=== PATIENT | female | born 1990 | race African-American/Black ===

== ENCOUNTER 2020-07-23 14:38 | Emergency (ER) | payer OTHER ==
--- OUTSIDE RECORDS SUMMARY | 2020-07-23 14:42 | XMS REPORT | Summary of Care ---
:1990 Author Organization [facility] Address [address] [place] [id number] Care Team Providers Name Role Phone Adeola Crum Primary Care Provider Reason for Visit Reason Comments Assessment Encounter Details Date Type Department Care Team Description 06/17/2020 Telephone [facility] EmmanuelAye MD Assessment Healthcare- [address] [place] [address] [address] [place] [address] [place] [address] [phone] Allergies No Known Allergiesdocumented as of this encounter (statuses as of 06/17/2020) Medications Medication Sig Dispensed Refills Start Date End Date Status vitamin w/FA Take 1 tablet by 100 tablet 3 01/23/2020 Active tabletIndications: mouth daily. Single liveborn, born in hospital, delivered by section, in third trimester with history of , 40 weeks gestation of , Obesity (BMI 30-39.9) docusate calcium 240 Take 1 capsule by 60 capsule 1 01/23/2020 Active mg capsuleIndications: mouth once daily Single liveborn, born as needed for in hospital, delivered Constipation. by section, in third trimester with history of , 40 weeks gestation of , Obesity (BMI 30-39.9) ferrous sulfate 325 mg Take 1 tablet by 60 tablet 2 01/23/2020 Active (65 mg iron) mouth 2 (two) tabletIndications: times daily. Single liveborn, born in hospital, delivered by section, in third trimester with history of , 40 weeks gestation of , Obesity (BMI 30-39.9) ibuprofen 600 mg Take 1 tablet by 30 tablet 1 01/23/2020 Active tabletIndications: mouth every 6 Single liveborn, born (six) hours as in hospital, delivered needed (Pain). by section, Take with food or in third milk. trimester with history of , 40 weeks gestation of , Obesity (BMI 30-39.9) SPRINTEC 0.25-35 TAKE 1 TABLET BY 84 tablet 1 02/20/2020 Active mg-mcg per MOUTH EVERY DAY tabletIndications: Encounter for BCP ( control pills) initial prescription nystatin 100,000 Apply to area(s) 15 g 1 03/23/2020 Active unit/gram 2 (two) times ointmentIndications: daily. Cracked nipple, condition or complication, Candidiasis of breast documented as of this encounter (statuses as of 06/17/2020) Active Problems Problem Noted Date Routine follow-up 02/17/2020 Encounter for BCP ( control pills) initial prescr iption 02/17/2020 Obesity (BMI 30-39.9) 12/24/2019 documented as of this encounter (statuses as of 06/17/2020) Resolved Problems Problem Noted Date Resolved Date in third trimester with history of 201802/17/2020 40 weeks gestation of 06/25/2019 02/17/20 20 Nausea and vomiting during prior to 22 weeks 06/2510/15/2019 gestation Pain pelvic 08/29/2018 06/25/2019 documented as of this encounter (statuses as of 06/17/2020) Immunizations Name Administration Dates Next Due Influenza Virus Vaccine Quad .5 mL IM 6+ MO 05/23/2019 TDAP (ADACEL) VACCINE 11/05/2019 11/04/2029 documented as of this encounter Social History Tobacco Use Types Packs/Day Years Used Date Never Smoker Smokeless Tobacco: Never Used Alcohol Use Drinks/Week oz/Week Comments No Sex Assigned at Date Recorded Not on file documented as of this encounter Last Filed Vital Signs Not on filedocumented in this encounter Miscellaneous Notes Telephone Encounter - Adriane Carroll MA - 06/17/2020 5:01 PM CSTS/w patient and identified her name and , patient stated she stopped breast feeding in April and was confirming if she needed to change her b/c. Informed patient that if she likes her b/c and is content with it there is no need to change it. Also informed patient that she should not express her breast or nipple or she will cause her more milk production, and if she feels she is leaking breast milk she can use cabbage leaves to help her dry out. Patient verbalized understanding. documented in this encounter Plan of Treatment Date Type Specialty Care Team Description 08/19/2020 Office Visit Obstetrics & Gynecology Rocky Emmanuel MD [address] [place] [address] [place] [address] 15 [phone] Health Maintenance Due Date Last Done Comments Depression Screening 2003 INFLUENZA VACCINE (#1) 2020 05/23/2019 PAP SMEAR 01/10/2022 01/10/2019 DTaP,Tdap,and Td Vaccines (2 - Td) 11/04/2029 11/05/2019 PNEUMOCOCCAL 0-64 YEARS COMBINED Aged Out No longer eligible based on SERIES patient's age to complete this topic documented as of this encounter Results Not on filedocumented in this encounter Insurance Payer Benefit Plan / Group Subscriber ID Effective Dates Phone Address Type AETNA AETNA CHOICE POS II [id number] 2018-Present POS documented as of this encounter
--- OUTSIDE RECORDS SUMMARY | 2020-07-23 14:42 | XMS REPORT | Continuity of Care Document ---
:1990 Author Organization [facility] t Address [address] [place] [address] Care Team Providers Name Role Phone Jose Emmanuel MD Attending Clinician Iris ART Attending Clinician Problems This patient has no known problems. Allergies, Adverse Reactions, Alerts This patient has no known allergies or adverse reactions. Medications This patient has no known medications. Procedures This patient has no known procedures. Encounters Start End Encounter Admission Attending Care Care Encounter Source Date/Time Date/Time Type Type Clinicians Facility Department ID 2020-06-17 2020-06-17 Telephone Aye Emmanuel [facility] [id number] 00:00:00 00:00:00 Jose Vasquez [id number] Caitlyn [id number] Professio [phone] [address] 2020-03-23 2020-03-23 Office MAYELA Simmons [id number] 15:16:07 15:46:07 Visit Maty Vasquez [id number] Caitlyn [id number] Professio [phone] [facility] [address] [facility] Results This patient has no known results.
--- NOTE | 2020-07-23 16:11 | RAD REPORT ---
EXAM DESCRIPTION: RAD - Chest Pa And Lat (2 Views) - 07/23/2020 3:50 pm CLINICAL HISTORY: DYSPNEA COMPARISON: None TECHNIQUE: Frontal and lateral views of the chest were obtained. FINDINGS: The lungs are clear. Heart size is normal and central vasculature is within normal limit s. No pleural effusion or pneumothorax seen. No acute bony finding noted. No aortic abnormality. IMPRESSION: No acute cardiopulmonary process.
--- NOTE | 2020-07-23 16:31 | EDPHYS ---
Physician Documentation [facility] Name: Nikole Wiseman Age: 30 yrs Sex: Female : 1990 Arrival Date: 07/23/2020 Time: 14:40 Bed 28 Private MD: ED Physician Eitan Madden HPI: 07/23 16:46 This 30 yrs old Black Female presents to ER via Ambulatory with complaints of Chest kb Tightness, Shortness Of Breath. 16:46 The patient has shortness of breath at rest. Onset: The symptoms/episode began/occurred kb 1 week(s) ago. Duration: The symptoms are intermittent. The patient's shortness of breath has no apparent modifying factors. Associated signs and symptoms: The patient has no apparent associated signs or symptoms. Severity of symptoms: At their worst the symptoms were mild in the emergency department the symptoms are unchanged. The patient has not experienced similar symptoms in the past. The patient has not recently seen a physician. Pt reports she has had episodes over the last week where she doesn't feel like she is taking a full breath. Reports she has to consciously take a deep breath to feel like she is filling her lungs. 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 - Social history:: Smoking status: Patient denies any tobacco usage or history of. ROS: 16:40 Constitutional: Negative for fever, chills, and weight loss, Cardiovascular: Negative kb for chest pain, palpitations, and edema, Abdomen/GI: Negative for abdominal pain, nausea, vomiting, diarrhea, and constipation, Back: Negative for injury and pain, MS/Extremity: Negative for injury and deformity, Skin: Negative for injury, rash, and discoloration, Neuro: Negative for headache, weakness, numbness, tingling, and seizure. 16:40 Respiratory: Positive for shortness of breath. Exam: 16:46 Constitutional: This is a well developed, well nourished patient who is awake, alert, kb and in no acute distress. Head/Face: Normocephalic, atraumatic. Chest/axilla: Normal chest wall appearance and motion. Nontender with no deformity. No lesions are appreciated. Cardiovascular: Regular rate and rhythm with a normal S1 and S2. No gallops, murmurs, or rubs. Normal PMI, no JVD. No pulse deficits. Respiratory: Lungs have equal breath sounds bilaterally, clear to auscultation and percussion. No rales, rhonchi or wheezes noted. No increased work of breathing, no retractions or nasal flaring. Abdomen/GI: Soft, non-tender, with normal bowel sounds. No distension or tympany. No guarding or rebound. No evidence of tenderness throughout. Skin: Warm, dry with normal turgor. Normal color with no rashes, no lesions, and no evidence of cellulitis. MS/ Extremity: Pulses equal, no cyanosis. Neurovascular intact. Full, normal range of motion. Neuro: Awake and alert, GCS 15, oriented to person, place, time, and situation. Cranial nerves II-XII grossly intact. Motor strength 5/5 in all extremities. Sensory grossly intact. Cerebellar exam normal. Normal gait. Vital Signs: 14:49 BP 110 / 75; Pulse 67; Resp 18 S; Temp 97.1(TE); Pulse Ox 100% on R/A; Weight 63.5 kg ca1 (R); Height 5 ft. 5 in. (165.10 cm) (R); Pain 0/10; 16:43 BP 112 / 78; Pulse 65; Resp 18; Temp 97.2; Pulse Ox 99% on R/A; ph 14:49 Body Mass Index 23.30 (63.50 kg, 165.10 cm) ca1 MDM: 14:55 Patient medically screened. kb 16:36 Data reviewed: vital signs, nurses notes. Data interpreted: Pulse oximetry: on room air kb is 100 %. Interpretation: normal. Counseling: I had a detailed discussion with the patient and/or guardian regarding: the historical points, exam findings, and any diagnostic results supporting the discharge/admit diagnosis, lab results, radiology results, the need for outpatient follow up, a family practitioner, to return to the emergency department if symptoms worsen or persist or if there are any questions or concerns that arise at home. 07/23 14:53 Order name: Flu; Complete Time: 16:36 kb 07/23 14:54 Order name: COVID-19 kb 07/23 14:53 Order name: EKG; Complete Time: 14:54 kb 07/23 14:53 Order name: EKG - Nurse/Tech; Complete Time: 15:05 kb 07/23 14:53 Order name: Chest Pa And Lat (2 Views) XRAY; Complete Time: 16:14 kb Administered Medications: No medications were administered Disposition: 07/24 07:00 Co-signature as Attending Physician, Eitan Madden MD I agree with the assessment and omayra plan of care. Disposition: 07/23/20 16:31 Discharged to Home. Impression: Dyspnea. - Condition is Stable. - Discharge Instructions: Shortness of Breath, [id number]. - Prescriptions for Albuterol Sulfate 90 mcg/actuation - inhale 1-2 puff by INHALATION route every 4-6 hours; 1 Inhaler. - Medication Reconciliation Form, Thank You Letter, Antibiotic Education, Prescription Opioid Use form. - Follow up: Emergency Department; When: As needed; Reason: Worsening of condition. Follow up: Private Physician; When: 2 - 3 days; Reason: Recheck today's complaints, Continuance of care, Re-evaluation by your physician. Signatures: Dispatcher [employer] EDLeonor Mar, MOTORIZED SQUAD LIEUTENANT-C LORENZO-Eitan Man MD MD cha Hall, Patricia, RN RN Rain Rader RN RN ca1 Corrections: (The following items were deleted from the chart) 07/23 16:43 16:31 07/23/2020 16:31 Discharged to Home. Impression: Dyspnea. Condition is Stable. ph Forms are Medication Reconciliation Form, Thank You Letter, Antibiotic Education, Prescription Opioid Use. Follow up: Emergency Department; When: As needed; Reason: Worsening of condition. Follow up: Private Physician; When: 2 - 3 days; Reason: Recheck today's complaints, Continuance of care, Re-evaluation by your physician. kb
--- NOTE | 2020-07-23 16:31 | ER ---
Nurse's Notes [facility] Name: Nikole Wiseman Age: 30 yrs Sex: Female : 1990 Arrival Date: 07/23/2020 Time: 14:40 Bed 28 Private MD: Diagnosis: Dyspnea Presentation: 07/23 14:49 Chief complaint: Patient states: I've been feeling chest tightness and has to put in ca1 effort to breathe deeply for over a week now. Denies cough, congestion, fever. Coronavirus screen: Client denies travel out of the [place] in the last 14 days. At this time, the client does not indicate any symptoms associated with coronavirus-19. The client reports previous COVID testing was negative. Date of collection: January 21, 2020. Ebola Screen: Patient negative for fever greater than or equal to 101.5 degrees Fahrenheit, and additional compatible Ebola Virus Disease symptoms Patient denies exposure to infectious person. Patient denies travel to an Ebola-affected area in the 21 days before illness onset. No symptoms or risks identified at this time. Initial Sepsis Screen: Does the patient meet any 2 criteria? No. Patient's initial sepsis screen is negative. Does the patient have a suspected source of infection? No. Patient's initial sepsis screen is negative. Risk Assessment: Do you want to hurt yourself or someone else? Patient reports no desire to harm self or others. Onset of symptoms was July 23, 2020. 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 - Social history:: Smoking status: Patient denies any tobacco usage or history of. Screenin:58 Abuse screen: Denies threats or abuse. Denies injuries from another. Nutritional ph screening: No deficits noted. Tuberculosis screening: No symptoms or risk factors identified. Fall Risk None identified. Assessment: 15:30 General: Appears in no apparent distress. comfortable, slender, well groomed, Behavior ph is calm, cooperative, appropriate for age, Denies fever. Pain: Complains of pain in chest Pain does not radiate. Quality of pain is described as "tight" Pain began approx 1 week ago. Neuro: Level of Consciousness is awake, alert, obeys commands, Oriented to person, place, time, situation. Cardiovascular: Reports chest pain, shortness of breath, Capillary refill < 3 seconds in bilateral fingers Patient's skin is warm and dry. Respiratory: Reports shortness of breath Airway is patent Respiratory effort is even, unlabored, Denies cough. GI: No signs and/or symptoms were reported involving the gastrointestinal system. Derm: Skin is intact, is healthy with good turgor, Skin is pink, warm \\T\\ dry. Vital Signs: 14:49 BP 110 / 75; Pulse 67; Resp 18 S; Temp 97.1(TE); Pulse Ox 100% on R/A; Weight 63.5 kg ca1 (R); Height 5 ft. 5 in. (165.10 cm) (R); Pain 0/10; 16:43 BP 112 / 78; Pulse 65; Resp 18; Temp 97.2; Pulse Ox 99% on R/A; ph 14:49 Body Mass Index 23.30 (63.50 kg, 165.10 cm) ca1 ED Course: 14:40 Patient arrived in ED. ag5 14:51 Leonor Connolly FNP-C [facility]. kb 14:51 Eitan Madden MD is Attending Physician. kb 14:52 Triage completed. ca1 14:53 Clemencia House, RN is Primary Nurse. ph 14:53 Arm band placed on right wrist. ca1 15:47 Chest Pa And Lat (2 Views) XRAY In Process Unspecified. EDMS 15:58 Patient has correct armband on for positive identification. Bed in low position. Call ph light in reach. Pulse ox on. NIBP on. Door closed. Noise minimized. 15:58 No provider procedures requiring assistance completed. Patient did not have IV access ph during this emergency room visit. Patient maintains SpO2 saturation greater than 95% on room air. Administered Medications: No medications were administered Outcome: 16:31 Discharge ordered by . kb 16:43 Discharged to home ambulatory. ph 16:43 Condition: good 16:43 Discharge instructions given to patient, Instructed on discharge instructions, follow up and referral plans. medication usage, Demonstrated understanding of instructions, follow-up care, medications, Prescriptions given X 1. 16:43 Patient left the ED. Addendum: 07/28/2020 08:41 Addendum: COVID-19 Result: Negative result given to RN to notify pt. Contacted by: rommel Morris RN. Notified pt of negative COVID 19 swab results. Pt advised that even with a negative test result they should remain in isolation until symptom free for 3 days without medication. Pt also advised to return to the ED for worsening symptoms. Signatures: Dispatcher [employer] EDMS Leonor Connolly, PLANT SCIENCES PROFESSOR-C PLANT SCIENCES PROFESSOR-Ckb Alexandra Urias RN RN sv Hall, Patricia, RN RN Rain Thao RN RN ca1 Gaskin, Ajare ag5
[2020-07-23 16:52] VITALS: BP 112/78; TEMP 97.2; O2SAT 99
--- NOTE | 2020-07-25 14:07 | EKG ---
Test Date: 2020-07-23 Test Time: 15:07:56 Foamite Mixer: NEISHA MEASUREMENT RESULTS: Intervals: Rate: 62 SC: 162 QRSD: 86 QT: 408 QTc: 414 [place]: P: 78 SC: 162 QRS: 90 T: 69 INTERPRETIVE STATEMENTS: Normal sinus rhythm Rightward axis Borderline ECG No previous ECG available for comparison Electronically Signed On 07-25-20 14:04:55 RESEARCH LABORATORY SPECIALIST by Flakito Pascual
== END 2020-07-23 16:43 | disposition home or self-care (01) ==
LOC: ER 14:38
DX: R06.00 Dyspnea, unspecified (principal); Z20.828 Contact with and (suspected) exposure to other viral communicable diseases
CPT/HCPCS: 93005 ×2; 87804 ×2; 71046; 99284; U0002

== ENCOUNTER → 2023-07-31 | Emergency (ER) | payer OTHER ==
[~2023-07-31] MED LIST: CEFTRIAXONE 1000 MG/VIAL ONE; NA CHLORIDE 0.9% 1,000 ML ONE; ONDANSETRON 4 MG/2 ML VIAL ONE
[2023-07-31 14:16] LABS: SARS-COV-2 RT PCR NEGATIVE (NEGATIVE)
--- NOTE | 2023-07-31 16:14 | EDPHYS ---
Physician Documentation [facility] Name: Nikole Wiseman Age: 33 yrs Sex: Female : 1990 Arrival Date: 07/31/2023 Time: 10:54 Bed 10 Private MD: ED Physician Jeffrey Ross HPI: 07/31 13:12 This 33 yrs old Black Female presents to ER via Ambulatory with complaints of Nausea, sb4 Fever, Sore Throat. 13:12 Sore throat that started 5 days ago. Was seen at urgent care yesterday, negative strep sb4 swab, but was put on amoxicillin. States that today she has been very nauseous and vomiting and has not been able to hold down her antibiotic. She feels that she is very dehydrated. She is also breast-feeding. Also endorses fever and chills. 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 - Social history:: Smoking status: Patient denies any tobacco usage or history of. ROS: 13:12 Cardiovascular: Negative for chest pain, palpitations, and edema, sb4 13:12 Constitutional: Positive for chills, fever, 13:12 ENT: Positive for sore throat, 13:12 Abdomen/GI: Positive for nausea and vomiting, 13:12 All other systems are negative, Exam: 13:12 Constitutional: This is a well developed, well nourished patient who is awake, alert, sb4 and in no acute distress. Head/Face: Normocephalic, atraumatic. Eyes: Extra-ocular motions intact. Periorbital areas with no swelling, redness, or edema. Cardiovascular: Regular rate and rhythm with a normal S1 and S2. Respiratory: Lungs have equal breath sounds bilaterally, clear to auscultation and percussion. No rales, rhonchi or wheezes noted. No increased work of breathing, no retractions or nasal flaring. Abdomen/GI: Soft, non-tender, no distension. Skin: Warm, dry with normal turgor. Normal color with no rashes, no lesions, and no evidence of cellulitis. MS/ Extremity: Pulses equal, no cyanosis. Neurovascular intact. Full, normal range of motion. Neuro: Awake and alert, GCS 15, oriented to person, place, time, and situation. Motor strength 5/5 in all extremities. Sensory grossly intact. 13:12 ENT: Posterior pharynx: erythema, exudate, that is moderate, Vital Signs: 11:45 BP 116 / 72; Pulse 120; Resp 16; Temp 98.6; Pulse Ox 100% ; iw 15:11 BP 119 / 69; Pulse 96; Resp 16; Pulse Ox 98% on R/A; iw 16:05 BP 119 / 69; Pulse 89; Resp 18; Pulse Ox 98% on R/A; tl4 16:40 BP 111 / 66; Pulse 95; Resp 16; Pulse Ox 99% on R/A; tl4 17:00 BP 112 / 62; Pulse 101; Resp 18; Pulse Ox 100% on R/A; tl4 17:26 BP 117 / 66; Pulse 92; Resp 18; Pulse Ox 100% on R/A; tl4 MDM: 12:54 Patient medically screened. sb4 13:12 Differential diagnosis: tonsillitis, pharyngitis, covid, flu. sb4 16:13 Data reviewed: vital signs, nurses notes, lab test result(s), and as a result, I will sb4 discharge patient. Counseling: I had a detailed discussion with the patient and/or guardian regarding the historical points, exam findings, and any diagnostic results supporting the discharge/admit diagnosis, lab results, to return to the emergency department if symptoms worsen or persist or if there are any questions or concerns that arise at home. 07/31 13:11 Order name: COVID-19/FLU A+B; Complete Time: 14:23 sb4 07/31 13:11 Order name: Strep sb4 07/31 14:12 Order name: Throat Culture EDMT 07/31 13:11 Order name: IV Start; Complete Time: 13:32 sb4 Administered Medications: 13:30 Drug: NS 0.9% IV 1000 ml IV at 1 bolus Per protocol; 1000 mL bolus Route: IV; Rate: 1 iw bolus; Site: left antecubital; 17:24 Follow up: Response: No adverse reaction; IV Status: Completed infusion; IV Intake: tl4 1000ml 13:30 Drug: Ondansetron IVP 4 mg IVP once; over 2 minutes Route: IVP; Site: right antecubital;iw 17:24 Follow up: Response: Nausea is decreased tl4 15:11 Drug: Rocephin IV 1 grams IV at calculated rate once; Given slow IV push per pharmacy iw instructions Route: IV; Rate: calculated rate; Site: left antecubital; 17:23 Follow up: Response: No adverse reaction; IV Status: Completed infusion tl4 15:11 Drug: NS 0.9% IV 1000 ml IV at 1 bolus Per protocol; 1000 mL bolus Route: IV; Rate: 1 iw bolus; Site: left antecubital; 17:23 Follow up: Response: No adverse reaction; IV Status: Completed infusion; IV Intake: tl4 1000ml Disposition: 18:42 I was immediately available on-site in the Emergency Department for consultation in the ms3 care of the patient. Disposition Summary: 07/31/23 16:13 Discharge Ordered Notes: Location: Home sb4 Problem: new sb4 Symptoms: have improved sb4 Condition: Stable sb4 Diagnosis - Acute pharyngitis, unspecified sb4 - Nausea with vomiting, unspecified sb4 Followup: sb4 - With: Emergency Department - When: As needed - Reason: Trouble breathing, Worsening of condition Discharge Instructions: - Discharge Summary Sheet sb4 - Nausea and Vomiting, Adult, [id number] sb4 - Pharyngitis, [id number] sb4 Forms: - Medication Reconciliation Form sb4 - Thank You Letter sb4 - Antibiotic Education sb4 - Prescription Opioid Use sb4 - Patient Portal Instructions sb4 - Leadership Thank You Letter sb4 Prescriptions: - Zofran 4 mg Oral Tablet - take 1 tablet ORAL route every 12 hours As needed; 20 tablet; Refills: 0, sb4 Product Selection Permitted Signatures: Dispatcher [employer] Aura Bran, RN RN Jeffrey Vaughan DO DO ms3 Carolyn Troncoso PA-C PA-C sb4 LogLatrell jade tl4
--- NOTE | 2023-07-31 16:14 | ER ---
Nurse's Notes [facility] Name: Nikole Wiseman Age: 33 yrs Sex: Female : 1990 Arrival Date: 07/31/2023 Time: 10:54 Bed 10 Private MD: Diagnosis: Acute pharyngitis, unspecified;Nausea with vomiting, unspecified Presentation: 07/31 11:45 Chief complaint: Patient states: NAUSEA AND VOMITING, DX WITH THROAT INFECTION x1 WK iw AGO. Coronavirus screen: At this time, the client does not indicate any symptoms associated with coronavirus-19. Ebola Screen: No symptoms or risks identified at this time. Initial Sepsis Screen: Does the patient meet any 2 criteria? HR > 90 bpm. No. Patient's initial sepsis screen is negative. Does the patient have a suspected source of infection? No. Patient's initial sepsis screen is negative. Risk Assessment: Do you want to hurt yourself or someone else? Patient reports no desire to harm self or others. Onset of symptoms is unknown. 11:45 Method Of Arrival: Ambulatory iw 11:45 Acuity: KEITH 3 iw Triage Assessment: 17:24 General: Appears in no apparent distress. Behavior is calm, cooperative. tl4 17:25 Pain: Complains of pain in throat. GI: Reports nausea, vomiting. tl4 DIGITAL MEDIA INTERN: 11:47 LMP N/A - , Not iw Historical: - Allergies: 11:47 No Known Allergies; iw - PMHx: 11:47 High Cholesterol; iw - Immunization history:: Adult Immunizations up to date. - Social history:: Smoking status: Patient denies any tobacco usage or history of. Screenin:22 [facility] ED Fall Risk Assessment (Adult) History of falling in the last 3 months, tl4 including since admission No falls in past 3 months (0 pts) Confusion or Disorientation No (0 pts) Intoxicated or Sedated No (0 pts) Impaired Gait No (0 pts) Mobility Assist Device Used No (0 pt) Altered Elimination No (0 pt) Score/Fall Risk Level 0 - 2 = Low Risk. Abuse screen: Denies threats or abuse. Denies injuries from another. Nutritional screening: No deficits noted. Tuberculosis screening: No symptoms or risk factors identified. Assessment: 14:59 Reassessment: Patient appears in no apparent distress at this time. Patient and/or iw family updated on plan of care and expected duration. Pain level reassessed. Patient is alert, oriented x 3, equal unlabored respirations, skin warm/dry/pink. 15:11 Reassessment: Patient appears in no apparent distress at this time. iw 17:25 Pain: Complains of pain in throat. GI: GI: Abdomen is flat, non-distended. tl4 Vital Signs: 11:45 BP 116 / 72; Pulse 120; Resp 16; Temp 98.6; Pulse Ox 100% ; iw 15:11 BP 119 / 69; Pulse 96; Resp 16; Pulse Ox 98% on R/A; iw 16:05 BP 119 / 69; Pulse 89; Resp 18; Pulse Ox 98% on R/A; tl4 16:40 BP 111 / 66; Pulse 95; Resp 16; Pulse Ox 99% on R/A; tl4 17:00 BP 112 / 62; Pulse 101; Resp 18; Pulse Ox 100% on R/A; tl4 17:26 BP 117 / 66; Pulse 92; Resp 18; Pulse Ox 100% on R/A; tl4 ED Course: 10:55 Patient arrived in ED. rg4 11:47 Triage completed. iw 11:47 Arm band placed on. iw 12:54 Carolyn Troncoso PA-C is PHCP. sb4 12:54 Jeffrey Ross DO is Attending Physician. sb4 13:00 Inserted saline lock: 22 gauge in left. iw 15:01 Latrell Toledo is Primary Nurse. tl4 17:22 Patient has correct armband on for positive identification. Placed in gown. Bed in low tl4 position. Call light in reach. Side rails up X2. Provided Education on: ED process. 17:23 No provider procedures requiring assistance completed. tl4 17:23 IV discontinued, intact, bleeding controlled, No redness/swelling at site. Pressure tl4 dressing applied. Administered Medications: 13:30 Drug: NS 0.9% IV 1000 ml IV at 1 bolus Per protocol; 1000 mL bolus Route: IV; Rate: 1 iw bolus; Site: left antecubital; 17:24 Follow up: Response: No adverse reaction; IV Status: Completed infusion; IV Intake: tl4 1000ml 13:30 Drug: Ondansetron IVP 4 mg IVP once; over 2 minutes Route: IVP; Site: right antecubital;iw 17:24 Follow up: Response: Nausea is decreased tl4 15:11 Drug: Rocephin IV 1 grams IV at calculated rate once; Given slow IV push per pharmacy iw instructions Route: IV; Rate: calculated rate; Site: left antecubital; 17:23 Follow up: Response: No adverse reaction; IV Status: Completed infusion tl4 15:11 Drug: NS 0.9% IV 1000 ml IV at 1 bolus Per protocol; 1000 mL bolus Route: IV; Rate: 1 iw bolus; Site: left antecubital; 17:23 Follow up: Response: No adverse reaction; IV Status: Completed infusion; IV Intake: tl4 1000ml Medication: 17:22 VIS not applicable for this client. tl4 Intake: 17:23 IV: 1000ml; Total: 1000ml. tl4 17:24 IV: 1000ml; Total: 2000ml. tl4 Outcome: 16:13 Discharge ordered by MD. sb4 17:28 Discharged to home ambulatory, tl4 17:28 Condition: stable 17:28 Discharge instructions given to patient, Instructed on discharge instructions, follow up and referral plans. medication usage, Demonstrated understanding of instructions, follow-up care, medications, 17:29 Patient left the ED. tl4 Signatures: Aura Pugh RN RN iw Garcia, Rubi rg4 Brown, Sophia, PA-C PA-C sb4 Latrell Toledo tl4
[2023-07-31 18:52] VITALS: TEMP 98.6
[2023-07-31 19:05] VITALS: BP 117/66; O2SAT 100
== END ==
LOC: ER 10:54
DX: R11.2 Nausea with vomiting, unspecified (principal); J02.9 Acute pharyngitis, unspecified; Z11.52 Encounter for screening for COVID-19
CPT/HCPCS: 96365; 96361; 87070; 87081; 0240U; 96375; 99284; 96366; J2405; J7030 ×2; J0696